=== PATIENT | male | born 1945 | race Caucasian/White ===

== ENCOUNTER 2017-10-30 16:06 | Inpatient (IN) | payer OTHER ==
[~2017-10-30] VITALS: Ht 175.3 cm; Wt 85.7 kg
[~2017-10-30 16:06] MED LIST: ALBUTEROL SULFAT2 MG PO; ALBUTEROL2.5 MG/31 INH; ALDACTAZIDE 251 EAC1 PO; ALDACTONE25 MG PO; AUGMENTIN 875875 MG PO; CARVEDILOL25 MG PO; COLACE100 MG PO; FENOFIBRATE160 MG PO; FLONASE 0.05%50 MCG NASAL; HYDROCHLOROTHIA25 M2 PO; IMDUR 30 MG TAB30 M1 PO; LEVAQUIN 500 M500 M4 PO; LEVEMIR SUBQ; LOVASTATIN 20 M20 MG PO; MIRALAX17 GM PO; NEBULIZER MISCELL; NITROGLYCERIN0.4 MG SUBLING; NOVOLIN N100 UNIT/3 SQ; NOVOLOG100 UNIT/1 SUBQ; OMEPRAZOLE40 MG PO; PERCOCET 7.5-31 EACH PO; PREDNISONE 10 M10 MG PO; PROZAC20 MG PO; SINEMET 25-1001 EAC1 PO; SINGULAIR 10 MG10 M1 PO
[2017-10-30 16:11] VITALS: BP 138/84
[2017-10-30 16:30] LABS: ABSOLUTE BASOPHILS 0.1 thou/uL (0.0-0.2); ABSOLUTE EOSINOPHILS 0.1 thou/uL (0.0-0.7); ABSOLUTE LYMPHOCYTES 1.1 thou/uL (0.8-5.3); ABSOLUTE MONOCYTES 0.5 thou/uL (0.0-1.2); ABSOLUTE NEUTROPHILS 5.5 thou/uL (1.6-8.1); BASOPHILS 0.8 %; HEMOGLOBIN 16.2 gm/dL (14.0-18.0); LYMPHOCYTES 14.7 %; MCV 81.9 fL (80.0-100.0); MONOCYTES 7.1 %; MPV 8.2 fl. (7.2-11.1); NUCLEATED RBCS 0 /100WBC; PLATELET COUNT* 265 thou/uL (150-400); POLYS 75.4 %; RBC 5.99 mil/uL (4.50-6.00); RDW-CV 14.3 % (10.5-14.5); WBC 7.3 thou/uL (4.0-11.0)
[2017-10-30 16:41] LABS: APTT 24.9 Seconds (25.0-31.3); INR 1.1; PROTIME 10.6 Seconds (9.20-11.50)
[2017-10-30 16:49] LABS: ANION GAP 12 mmol/L (7-16); BUN 16 mg/dL (7-18); CALCIUM 8.6 mg/dL (8.5-10.1); CHLORIDE 99 mmol/L (98-107); CO2 25 mmol/L (21-32); CREATININE 0.9 mg/dL (0.6-1.3); GLUCOSE 384 mg/dL (70-99); POTASSIUM 4.6 mmol/L (3.5-5.1); SODIUM 136 mmol/L (136-145)
[2017-10-30 16:57] LABS: ALBUMIN 3.4 g/dL (3.4-5.0); ALKALINE PHOSPHATASE 78 U/L (46-116); LIPASE 54 U/L (73-393); NT-PRO BRAIN NAT PEPTIDE 2720 pg/mL (<300); SGOT 14 U/L (15-37); SGPT 23 U/L (30-65); TOTAL BILIRUBIN 0.5 mg/dL (<0.1-1.0); TOTAL PROTEIN 6.8 g/dL (6.4-8.2); TROPONIN-I LEVEL <0.06 ng/mL (<0.06)
[2017-10-30 20:15] VITALS: BP 136/74
[2017-10-30 21:06] VITALS: BP 125/69
[2017-10-31] VITALS (16 sets, daily range): BP systolic 107–132; BP diastolic 56–75
[2017-10-31 08:24] LABS: HEMATOCRIT 43.1 % (42.0-52.0); HEMOGLOBIN 14.4 gm/dL (14.0-18.0); MCH 27.2 pg (26.0-34.0); MCHC 33.4 g/dL (28.0-37.0); MCV 81.3 fL (80.0-100.0); MPV 8.4 fl. (7.2-11.1); NUCLEATED RBCS 0 /100WBC; PLATELET COUNT* 248 thou/uL (150-400); RDW-CV 13.9 % (10.5-14.5)
[2017-10-31 08:40] LABS: ANION GAP 11 mmol/L (7-16); BUN 25 mg/dL (7-18); CHLORIDE 102 mmol/L (98-107); CO2 24 mmol/L (21-32); CREATININE 0.7 mg/dL (0.6-1.3); GLUCOSE 333 mg/dL (70-99); POTASSIUM 4.5 mmol/L (3.5-5.1); SODIUM 137 mmol/L (136-145); TROPONIN-I LEVEL <0.06 ng/mL (<0.06)
[2017-10-31 09:07] LABS: ABSOLUTE LYMPHOCYTES 0.5 thou/uL (0.8-5.3); ABSOLUTE MONOCYTES 0.2 thou/uL (0.0-1.2); ABSOLUTE NEUTROPHILS 4.4 thou/uL (1.6-8.1); ANISOCYTOSIS 1+; PLATELET ESTIMATE ADEQUATE; POIKILOCYTOSIS 1+
[2017-10-31 10:09] LABS: CHOLESTEROL 246 mg/dL (<200); HDL CHOLESTEROL 34 mg/dL (>40); LDL CHOLESTEROL 186 mg/dL (<100); SERUM ASSESSMENT Clear; TC:HDL 7.2 Ratio (Not establshd); TRIGLYCERIDE 130 mg/dL (<150); VLDL 26 mg/dL (<40)
--- NOTE | 2017-10-31 15:23 | EKG ---
[place] [address] ELECTROCARDIOGRAM REPORT Name: ALEXUS CONTE Room: [address]R.#: [id number] Admission: 10/30/17 Attend Phys: Donavan Baker MD Discharge: Date of : 45 Report #: [id number] THIS REPORT FOR: //name// [facility] ED Test Date: 2017-10-30 Test Time: 16:13:13 Pat Name: ALEXUS CONTE Department: Room: [facility] Gender: M Senior Interaction Designer: Tha YATES : 1945 Requested By: Federica Young Order Number: [id number] MD: Harvinder Vidal Measurements Intervals [place] Rate: 83 P: 56 CO: 199 QRS: -5 QRSD: 153 T: 183 QT: 388 QTc: 456 Interpretive Statements Sinus rhythm Left bundle branch block Compared to ECG 03/09/2017 21:41:27 Atrial abnormality no longer present Electronically Signed On 10-31-2017 15:23:36 INDUSTRIAL ORGANIZATIONAL PSYCHOLOGIST by Harvinder Vidal [email or web address] <ELECTRONICALLY SIGNED> By: Harvinder Vidal MD, [facility] 10/31/17 1523 1613 1613 Harvinder Vidal MD, [facility] /EPI
[2017-11-01] VITALS (13 sets, daily range): BP systolic 70–136; BP diastolic 39–89
[2017-11-01 05:13] LABS: HEMOGLOBIN 14.5 gm/dL (14.0-18.0); MCH 27.3 pg (26.0-34.0); MCHC 33.6 g/dL (28.0-37.0); MCV 81.2 fL (80.0-100.0); MPV 8.6 fl. (7.2-11.1); RBC 5.3 mil/uL (4.50-6.00); RDW-CV 14.1 % (10.5-14.5); WBC 11.2 thou/uL (4.0-11.0)
[2017-11-01 05:34] LABS: CALCIUM 8.3 mg/dL (8.5-10.1); CREATININE 0.8 mg/dL (0.6-1.3); POTASSIUM 4.5 mmol/L (3.5-5.1); TROPONIN-I LEVEL 0.11 ng/mL (<0.06)
--- NOTE | 2017-11-01 12:03 | CARD ---
[address] [address] CARDIAC CATH REPORT Name: ALEXUS CONTE Room: [address] Roxanne Moscoso#: [id number] Admission: 10/30/17 Attend Phys: Donavan Baker MD Discharge: Date of : 45 Report #: [id number] THIS REPORT FOR: //name// APPROVED REPORT Patient Details Patient Status: In-Patient Room #: The patient is a 72 year-old male Event Personnel Harvinder Vidal Lead Massage Therapist, Rashida Hylton Engine Generator Assembler, Ez Leon Monitor, Kym Hartman RTR Scrub, , Jack Aguilar (R) Monitor, Surendra Mathias Lead Massage Therapist Procedures Performed Left heart catheterization left ventriculography selective coronary atrophy, and percutaneous coronary intervention to the proximal right coronary artery Indication Unstable angina Risk Factors Hypercholesterolemia, Hypertension Previous Procedures/Diagnoses Previous PCI Admission/Lab Medications/Medications given during procedure Aspirin, Platelet Aff. Inhib., Angiomax bolus and infusion Procedure Narrative The patient was brought electively to the Cardiac Catheterization Laboratory and was prepped and draped in a sterile manner. The right wrist was infiltrated with 1% Lidocaine subcutaneous anesthesia. A Slender Glidesheath sheath was inserted into the . Coronary angiography was performed using coronary diagnostic catheters. The right coronary system was accessed and visualized with a DCR: [place] 4.0 5fr catheter. The left coronary system was accessed and visualized with a DCR: [place] 4.0 5fr catheter. The left ventricle was accessed and visualized with a PC: Angled Pig 5fr catheter. Left ventricular/Aortic Valve gradient assessed . Closure device was deployed with a Fr Vasc-Band Reg 24cm. The patient tolerated the procedure well and there were no complications [place] [address] CARDIAC CATH REPORT Name: ALEXUS CONTE Room: [address]#: [id number] Admission: 10/30/17 Attend Phys: Donavan Baker MD Discharge: Date of : 45 Report #: [id number] Intraoperative Conscious Sedation Sedation start time: 1410 Case end Time: 1527 Fentanyl 25 mcg Versed 2 mg Fluoro Time: 27.6 minutes Dose: DAP 500394 cGycm2 3160 mGy Contrast Type and Amount: Visipaque 285 ml Coronary Angiography The patient's coronary anatomy is co- dominant. Diagnostic Cath Left Main 0% narrowing LAD 40% proximal narrowing 80% mid LAD in-stent restenosis Circumflex 90% stenosis of a moderate sized subbranch of the first marginal branch of the codominant circumflex Right Coronary Prominent, codominant vessel with 90% proximal stenosis and 40% mid right coronary narrowing Left Ventriculography The left ventricle is normal in size with contractility. The left ventricular ejection fraction is estimated to be 50%. There is no mitral insufficiency. Hemodynamics The aortic pressure is 112/60 mmHg with a mean of 75 mmHg. The left ventricular pressure is 104/3 mmHg with a mean of mmHg. The left ventricular end diastolic pressure is 7 mmHg. There was no gradient across the aortic valve upon pullback. PCI Technique Lesion Anticoagulation was achieved with Angiomax. Patient was preloaded with Angiomax IV 12.75 mg per kg. Percutaneous coronary intervention was performed on the proximal right coronary artery. The lesion stenosis prior to intervention was 90% with KIYA 3 flow. A 6FR LAUNCHER AL.75 Guide Catheter was used to engage the ostium. A IG: ProwaterFlex 180CM Interventional Guidewire was used to cross the lesion. BALLOON DILATION A Balloon catheter Trek RX 2.25 X 15 was inserted and inflated up to 12.00atm for 13seconds. Additional Inflation: 16.00atm [place] 13[place]. [place] [address] CARDIAC CATH REPORT Name: ALEXUS CONTE Room: [address] Blanka#: [id number] Admission: 10/30/17 Attend Phys: Donavan Baker MD Discharge: Date of : 45 Report #: [id number] STENT DEPLOYMENT A stent Xience Alpine RX 2.5X18 was inserted and inflated up to 12.00atm for 13seconds. Additional Inflation: 16.00atm for 15seconds. Additional Inflation: 17.00atm for 14seconds. POST STENT DEPLOYMENT BALLOON DILATION A Balloon catheter NC Euphora 2.75x12 was inserted and inflated up to 15.00atm for 13seconds. Additional Inflation: 17.00atm for 8seconds. Additional Inflation: 16.00atm for 10seconds. Final angiography reveals 0 % stenosis with KIYA 3 flow. Conclusion #1 significant coronary artery disease characterized by the following: A 40% proximal and 80% mid LAD in-stent restenosis, B 90% stenosis of a moderate sized subbranch of the first marginal branch of the codominant circumflex, C codominant right coronary with 90% proximal 40% mid vessel narrowing #2 mild impairment in global left ventricular systolic function, estimated ejection fraction being 50%, #3 normal left-sided hemodynamics study, #4 successful percutaneous coronary intervention with deployment of drug-eluting stent at site of 90% proximal right coronary stenosis with 0% residual narrowing following stent deployment and KIYA-3 flow to the distal vessel. Recommendations Aggressive Medical Therapy Medications Administered Aspirin (any) Ticagrelor <ELECTRONICALLY SIGNED> By: Surendra Mathias MD, [facility] 11/01/17 1202 1202 1202Surendra Mathias MD, FACC /INF
--- NOTE | 2017-11-01 14:36 | EKG ---
[place] [address] ELECTROCARDIOGRAM REPORT Name: ALEXUS CONTE Room: [address] M.R.#: [id number] Admission: 10/30/17 Attend Phys: Donavan Baker MD Discharge: Date of : 45 Report #: [id number] THIS REPORT FOR: //name// [facility] Test Date: 2017-10-31 Test Time: 16:09:57 Pat Name: ALEXUS CONTE Department: Room: [address] Gender: M Slip Caster: 27 : 1945 Requested By: Surendra Mathias Order Number: [id number] Reading MD: Harvinder Vidal Measurements Intervals [place] Rate: 82 P: 0 ME: 194 QRS: 82 QRSD: 129 T: -83 QT: 418 QTc: 489 Interpretive Statements Sinus rhythm Nonspecific intraventricular conduction delay Probable anteroseptal infarct, recent Baseline wander in lead(s) V2 Compared to ECG 10/30/2017 16:13:13 Intraventricular conduction delay now present Myocardial infarct finding now present Left bundle-branch block no longer present Electronically Signed On 11-01-2017 14:36:48 AFTERSCHOOL by Harvinder Vidal [email or web address] <ELECTRONICALLY SIGNED> By: Harvinder Vidal MD, FACC 11/01/17 1436 1609 1609 Harvinder Vidal MD, FACC /EPI
--- NOTE | 2017-11-01 14:39 | EKG ---
[place] [address] ELECTROCARDIOGRAM REPORT Name: ALEXUS CONTE Room: [address]R.#: [id number] Admission: 10/30/17 Attend Phys: Donavan Baker MD Discharge: Date of : 45 Report #: [id number] THIS REPORT FOR: //name// [facility] Test Date: 2017-11-01 Test Time: 08:09:44 Pat Name: ALEXUS CONTE Department: Room: [address] Gender: M Stunt Performer: 27 : 1945 Requested By: Surendra Mathias Order Number: [id number] Reading MD: Harvinder Vidal Measurements Intervals [place] Rate: 93 P: 62 SD: 196 QRS: 11 QRSD: 161 T: 227 QT: 403 QTc: 502 Interpretive Statements Sinus rhythm Left bundle branch block Compared to ECG 10/30/2017 16:13:13 No significant changes Electronically Signed On 11-01-2017 14:39:13 TRANSITIONAL NURSE by Harvinder Vidal [email or web address] <ELECTRONICALLY SIGNED> By: Harvinder Vidal MD, [facility] 11/01/17 1439 8 8 Harvinder Vidal MD, [facility] /EPI
[2017-11-02] VITALS: BP 134/82
[2017-11-02 04:00] VITALS: BP 142/91
[2017-11-02 04:55] LABS: CALCIUM 8.4 mg/dL (8.5-10.1); CREATININE 0.7 mg/dL (0.6-1.3)
[2017-11-02 05:00] LABS: ABSOLUTE EOSINOPHILS 0.1 thou/uL (0.0-0.7); ABSOLUTE LYMPHOCYTES 1.1 thou/uL (0.8-5.3); ABSOLUTE MONOCYTES 0.5 thou/uL (0.0-1.2); ABSOLUTE NEUTROPHILS 4.8 thou/uL (1.6-8.1); BASOPHILS 0.4 %; EOSINOPHILS 1.1 %; HEMATOCRIT 42.1 % (42.0-52.0); HEMOGLOBIN 14.1 gm/dL (14.0-18.0); LYMPHOCYTES 17.1 %; MCH 27.1 pg (26.0-34.0); MCHC 33.6 g/dL (28.0-37.0); MCV 80.8 fL (80.0-100.0); MONOCYTES 7.5 %; MPV 8.9 fl. (7.2-11.1); NUCLEATED RBCS 0 /100WBC; PLATELET COUNT* 233 thou/uL (150-400); POLYS 73.9 %; RBC 5.21 mil/uL (4.50-6.00); RDW-CV 14.3 % (10.5-14.5); WBC 6.6 thou/uL (4.0-11.0)
[2017-11-02 08:43] VITALS: BP 139/84
[2017-11-02 12:49] VITALS: BP 147/87
[2017-11-02 12:57] VITALS: BP 147/87
[2017-11-02] MEDS ORDERED: BRILINTA90 MG PO (13:06)
[2017-11-02] MEDS ORDERED: CRESTOR20 MG PO (13:09)
--- NOTE | 2017-11-02 13:11 | EKG ---
[place] [address] ELECTROCARDIOGRAM REPORT Name: ALEXUS CONTE Room: [address] M.R.#: [id number] Admission: 10/30/17 Attend Phys: Donavan Baker MD Discharge: Date of : 45 Report #: [id number] THIS REPORT FOR: //name// [facility] Test Date: 2017-11-01 Test Time: 13:50:37 Pat Name: ALEXUS CONTE Department: Room: [address] Gender: M Claims Vice President: [facility] : 1945 Requested By: Donavan Baker Order Number: [id number] Reading MD: Harvinder Vidal Measurements Intervals [place] Rate: 76 P: 45 [place]: 189 QRS: -32 QRSD: 133 T: 146 QT: 440 QTc: 495 Interpretive Statements Sinus rhythm Probable left atrial enlargement Left bundle branch block Baseline wander in lead(s) II,III,aVR,aVF Compared to ECG 11/01/2017 08:09:44 No significant changes Electronically Signed On 11-02-2017 13:11:31 ONLINE SERVICES MANAGER by Harvinder Vidal [email or web address] <ELECTRONICALLY SIGNED> By: Harvinder Vidal MD, FAC 11/02/17 1311 1350 1350 Harvinder Vidal MD, [facility] /EPI
--- NOTE | 2017-11-02 13:12 | EKG ---
[place] [address] ELECTROCARDIOGRAM REPORT Name: ALEXUS CONTE Room: [address] M.R.#: [id number] Admission: 10/30/17 Attend Phys: Donavan Baker MD Discharge: Date of : 45 Report #: [id number] THIS REPORT FOR: //name// [facility] Test Date: 2017-11-01 Test Time: 21:12:34 Pat Name: ALEXUS CONTE Department: Room: [address] Gender: M Yarder Puncher: : 1945 Requested By: Harvinder Vidal Order Number: [id number] Reading MD: Harvinder Vidal Measurements Intervals [place] Rate: 105 P: 216 [place]: 103 QRS: 21 QRSD: 153 T: 231 QT: 419 QTc: 554 Interpretive Statements Sinus or ectopic atrial tachycardia Left bundle branch block Compared to ECG 11/01/2017 08:09:44 Sinus rhythm no longer present Electronically Signed On 11-02-2017 13:12:02 DIGITAL PRINT OPERATOR by Harvinder Vidal [email or web address] <ELECTRONICALLY SIGNED> By: Harvinder Vidal MD, [facility] 11/02/171311 11 11 Harvinder Vidal MD, [facility] /EPI
--- NOTE | 2017-11-04 09:44 | CON ---
[address] [address] CONSULTATION Name: INÉSALEXUS Justyna Room: [address] Roxanne Moscoso#: [id number] Admission: 10/30/17 Attend Phys: Donavan Baker MD Discharge: 11/02/17 Date of : 45 Report #: [id number] THIS REPORT FOR: //name// CC: Donavan Torre CHIEF COMPLAINT: Chest pain. HISTORY OF PRESENT ILLNESS: The patient is a 72-year-old man with a known history of prior coronary artery disease and acute TX remotely at [facility] in 1999 with PCI, presented with resting chest discomfort, was improved with nitroglycerin. This all occurred last night. He has been noticing significant dyspnea with exertion, especially when he enters the cold weather. Some symptoms are similar to his prior PCI, but he was minimally symptomatic at the time of his prior TX. He had had actually presented with elective outpatient dermatologic surgery and then had developed unstable angina. He has not had any cardiovascular followup since then. He presents with a left bundle branch. His troponin I this morning is 0.06. He denies fevers, chills. He denies neuro symptoms of slurred speech, numbness or weakness. PAST MEDICAL HISTORY: 1. Coronary artery disease with PCI in the acute setting in 1999. 2. Left bundle-branch block, chronology not known. 3. Hyperlipidemia. 4. Diabetes mellitus. 5. Former smoker, quit in 1991. SOCIAL HISTORY: No active smoking. PAST SURGICAL HISTORY: No recent surgeries. ALLERGIES: He has ALLERGIES TO MORPHINE, HYDROCODONE, and TYLENOL, but denies aspirin or contrast allergies. FAMILY HISTORY: Noncontributory. REVIEW OF SYSTEMS: GASTROINTESTINAL: No nausea or vomiting. No hematemesis or melena. GENITOURINARY: No dysuria or hematuria. SKIN: No rashes. CARDIOVASCULAR: Positive chest pain, positive dyspnea with exertion, no orthopnea. Positive edema, which is transient. NEUROLOGIC: Denies headaches, blurry vision. He does have a remote diagnosis [place] [address] CONSULTATION Name: INÉSALEXUS Room: [address]#: [id number] Admission: 10/30/17 Attend Phys: Donavan Baker MD Discharge: 11/02/17 Date of : 45 Report #: [id number] ENDOCRINE: He does have hyperlipidemia. HEMATOLOGIC: No anemia or bleeding disorders. ALLERGIES: As above. PSYCHIATRIC: No depression or anxiety. SKIN: No rashes. GENERAL: No fevers or chills. HOME MEDICATIONS: Levodopa and carbidopa, fenofibrate 160 mg daily, fluoxetine 20 mg daily, insulin sliding scale, Imdur 30 mg daily, lovastatin 20 mg at bedtime, nitroglycerin 0.4 mg p.r.n., omeprazole. PHYSICAL EXAMINATION: VITAL SIGNS: Blood pressure is 107/60 with a pulse of 76, respirations 15. GENERAL: This is a pleasant elderly male who is alert. He is a poor historian, but in no apparent distress. HEENT: Eyes, EOMs intact. No facial asymmetry. NECK: Supple. No jugular venous distention. Carotid upstrokes are normal. CARDIOVASCULAR: Regular, I cannot hear a murmur. LUNGS: Clear to auscultation. ABDOMEN: Soft, nontender. EXTREMITIES: No peripheral edema. SKIN: Warm and dry. PSYCHIATRIC: The patient has appropriate mood and affect. LABORATORY DATA: ECG demonstrates sinus rhythm, left bundle-branch block. Hemoglobin is 14.4; white blood cell count is 5; platelet count is 248,000. Sodium is 137, potassium is 4.5, chloride 102, BUN is 25, creatinine is 0.7, glucose is 333, troponin I is 0.06. CRP is less than 2. Chest x-ray reveals no acute chest process. IMPRESSION: 1. Unstable angina. His rest chest discomfort associated with significant dyspnea with exertion are likely anginal in etiology, especially as he has numerous cardiovascular risk factors including diabetes, hyperlipidemia, known history of coronary artery disease. He presents with a left bundle-branch block of which we do not know exactly when this was previously present, if not at all. At this point in time, I have recommended a direct evaluation with cardiac catheterization based on some unstable features of his presentation. The patient elects to proceed. 2. Coronary artery disease as noted above. We will continue with aspirin, nitrate therapy and evaluation [place] [address] CONSULTATION Name: INÉSALEXUS Room: [address] Roxanne Moscoso#: [id number] Admission: 10/30/17 Attend Phys: Donavan Baker MD Discharge: 11/02/17 Date of : 45 Report #: [id number] 3. Diabetes mellitus. Per hospital colleagues. 4. Hyperlipidemia. I would continue with the statin and fenofibrate. <ELECTRONICALLY SIGNED> By: Harvinder Vidal MD, FACC 11/04/17 0944 0953 1105Harvinder Vidal MD, FACC /nt
--- NOTE | 2017-11-04 10:12 | D ---
[facility] [address] [place] [address] DISCHARGE SUMMARY Name: INÉSALEXUS Jansen Room: [address] Roxanne Moscoso#: [id number] Admission: 10/30/17 Attend Phys: Donavan Baker MD Discharge: 11/02/17 Date of : 45 Report #: [id number] THIS REPORT FOR: //name// CC: Donavan Torre DATE OF SERVICE: 11/01/2017 FINAL DIAGNOSES: 1. Unstable angina. 2. Coronary artery disease status post percutaneous coronary intervention to picayune proximal right coronary artery 90% stenosis. 3. Left bundle-branch block. 4. Hyperlipidemia. 5. Diabetes mellitus. HOSPITAL COURSE: The patient had been having chest discomfort as an outpatient and underwent a diagnostic cardiac catheterization which revealed a severe proximal 90% RCA stenosis, which was successfully treated with drug-eluting stent. He also had a severe stenosis in a medium to large size obtuse marginal branch vessel and an instent restenosis in the 70% range to a proximal LAD stent, which will be addressed at a later date. Due to the dye load from his initial PCI, these were not able to be treated at the same time. He has preserved LV function. DISCHARGE MEDICATIONS: Will include Crestor 20 mg daily, Brilinta 1 p.o. b.i.d. His diabetic medications were unchanged. We did switch him from generic lovastatin to generic Crestor because his LDL was greater than 160. FOLLOWUP: He will follow up with Aleyda Palafox on 11/07/2017. <ELECTRONICALLY SIGNED> By: Harvinder Vidal MD, FACC 11/04/17 1012 1225 2305Harvinder Vidal MD, FACC /nt
== END 2017-11-02 13:55 | disposition home or self-care (01) | DRG 246 ==
LOC: M.ERS 16:06 → M.TBA-ER 18:03 → M.2W 18:03
PROVIDERS: Internal Medicine; Internal Medicine Cardiovascular Disease; Personal Emergency Response Attendant; ADMIT Internal Medicine
PROC: B2151ZZ Fluoroscopy of Left Heart using Low Osmolar Contrast (ICD-10-PCS; principal; 2017-11-01)
PROC: B2111ZZ Fluoroscopy of Multiple Coronary Arteries using Low Osmolar Contrast (ICD-10-PCS; principal; 2017-11-01)
PROC: 027034Z Dilation of Coronary Artery, One Artery with Drug-eluting Intraluminal Device, Percutaneous Approach (ICD-10-PCS; principal; 2017-11-01)
PROC: 4A023N7 Measurement of Cardiac Sampling and Pressure, Left Heart, Percutaneous Approach (ICD-10-PCS; principal; 2017-11-01)
DX: I25.110 Atherosclerotic heart disease of native coronary artery with unstable angina pectoris (principal); I50.31 Acute diastolic (congestive) heart failure; T82.855A Stenosis of coronary artery stent, initial encounter; E11.65 Type 2 diabetes mellitus with hyperglycemia; E78.5 Hyperlipidemia, unspecified; G20 Parkinson's disease; I44.7 Left bundle-branch block, unspecified; Y83.8 Other surgical procedures as the cause of abnormal reaction of the patient, or of later complication, without mention of misadventure at the time of the procedure; Z85.820 Personal history of malignant melanoma of skin; I25.2 Old myocardial infarction; Z87.891 Personal history of nicotine dependence; Z95.5 Presence of coronary angioplasty implant and graft; Z90.49 Acquired absence of other specified parts of digestive tract; Z79.51 Long term (current) use of inhaled steroids; Z79.82 Long term (current) use of aspirin; Z79.4 Long term (current) use of insulin; Z79.899 Other long term (current) drug therapy; Z88.5 Allergy status to narcotic agent; Z88.8 Allergy status to other drugs, medicaments and biological substances; Y92.89 Other specified places as the place of occurrence of the external cause

== ENCOUNTER 2017-11-05 09:45 | Inpatient (IN) | payer OTHER ==
[~2017-11-05] VITALS: Ht 175.3 cm; Wt 88.5 kg
[~2017-11-05 09:45] MED LIST changes: +BRILINTA90 MG PO; +CRESTOR20 MG PO
[2017-11-05 09:48] VITALS: BP 173/109
[2017-11-05 10:01] LABS: ABSOLUTE BASOPHILS 0.1 thou/uL (0.0-0.2); ABSOLUTE EOSINOPHILS 0.3 thou/uL (0.0-0.7); ABSOLUTE LYMPHOCYTES 2.9 thou/uL (0.8-5.3); ABSOLUTE MONOCYTES 0.7 thou/uL (0.0-1.2); ABSOLUTE NEUTROPHILS 5.9 thou/uL (1.6-8.1); BASOPHILS 0.7 %; EOSINOPHILS 2.8 %; HEMATOCRIT 49.3 % (42.0-52.0); HEMOGLOBIN 16.1 gm/dL (14.0-18.0); MCH 27.1 pg (26.0-34.0); MCHC 32.8 g/dL (28.0-37.0); MCV 82.8 fL (80.0-100.0); MONOCYTES 7.5 %; MPV 8.7 fl. (7.2-11.1); NUCLEATED RBCS 0 /100WBC; PLATELET COUNT* 350 thou/uL (150-400); RBC 5.96 mil/uL (4.50-6.00); RDW-CV 14.4 % (10.5-14.5); WBC 9.8 thou/uL (4.0-11.0)
[2017-11-05 10:10] LABS: CALCIUM 9.1 mg/dL (8.5-10.1); CREATININE 0.8 mg/dL (0.6-1.3); POTASSIUM 3.9 mmol/L (3.5-5.1)
[2017-11-05 10:16] LABS: APTT 24.2 Seconds (25.0-31.3); PROTIME 10.1 Seconds (9.20-11.50)
[2017-11-05 10:33] LABS: ALBUMIN 3.6 g/dL (3.4-5.0); CK-MB MASS 0.7 ng/mL (<0.5-3.6); MAGNESIUM 1.8 mg/dL (1.8-2.4); TOTAL BILIRUBIN 0.6 mg/dL (<0.1-1.0); TOTAL PROTEIN 7.1 g/dL (6.4-8.2)
[2017-11-05 11:29] LABS: TROPONIN-I LEVEL 0.14 ng/mL (<0.06)
--- NOTE | 2017-11-05 16:22 | EKG ---
[place] [address] ELECTROCARDIOGRAM REPORT Name: ALEXUS CONTE Room: [place] [address] ADM IN [facility].#: [id number] Admission: 11/05/17 Attend Phys: Donavan Baker MD Discharge: Date of : 45 Report #: [id number] THIS REPORT FOR: //name// [facility] ED Test Date: 2017-11-05 Test Time: 09:48:04 Pat Name: ALEXUS CONTE Department: Room: [facility] Gender: M Can Top Setter: Tha WILLAMS : 1945 Requested By: Emiliano Tavarez Order Number: [id number] MD: Giorgio Lundberg Measurements Intervals [place] Rate: 108 P: 0 [place]: 161 QRS: 19 QRSD: 155 T: 217 QT: 366 QTc: 491 Interpretive Statements Sinus tachycardia Left bundle branch block Baseline wander in lead(s) V1,V2 Compared to ECG 11/01/2017 21:12:34 No significant changes Electronically Signed On 11-05-2017 16:22:13 GUARD MUSEUM by Giorgio Lundberg [email or web address] <ELECTRONICALLY SIGNED> By: Giorgio Lundberg MD, [facility] 11/05/17 1622 0948 0948 Giorgio Lundberg MD, [facility] /EPI
[2017-11-05 17:35] VITALS: BP 154/81
[2017-11-05 17:49] VITALS: BP 115/67
[2017-11-05 18:55] VITALS: BP 131/74
[2017-11-05 19:06] VITALS: BP 115/67
[2017-11-05 20:00] VITALS: BP 140/81
[2017-11-06] VITALS (18 sets, daily range): BP systolic 62–158; BP diastolic 30–99
[2017-11-06 05:43] LABS: HEMATOCRIT 43.2 % (42.0-52.0); HEMOGLOBIN 14.2 gm/dL (14.0-18.0); MCH 26.6 pg (26.0-34.0); MCHC 32.8 g/dL (28.0-37.0); MCV 81.3 fL (80.0-100.0); MPV 8.9 fl. (7.2-11.1); NUCLEATED RBCS 0 /100WBC; PLATELET COUNT* 325 thou/uL (150-400); RBC 5.32 mil/uL (4.50-6.00); RDW-CV 14.3 % (10.5-14.5); WBC 12.7 thou/uL (4.0-11.0)
[2017-11-06 06:10] LABS: CALCIUM 8.4 mg/dL (8.5-10.1); CREATININE 0.7 mg/dL (0.6-1.3); POTASSIUM 4.3 mmol/L (3.5-5.1)
[2017-11-06 06:17] LABS: ABSOLUTE LYMPHOCYTES 0.6 thou/uL (0.8-5.3); ABSOLUTE MONOCYTES 0.8 thou/uL (0.0-1.2); ABSOLUTE NEUTROPHILS 11.3 thou/uL (1.6-8.1)
[2017-11-06 06:18] LABS: ANISOCYTOSIS 1+; PLATELET ESTIMATE ADEQUATE; POIKILOCYTOSIS 1+; POLYCHROMASIA Occasional
--- NOTE | 2017-11-06 17:29 | EKG ---
[place] [address] ELECTROCARDIOGRAM REPORT Name: ALEXUS CONTE Room: [address] ADM IN .R.#: [id number] Admission: 11/05/17 Attend Phys: Donavan Baker MD Discharge: Date of : 45 Report #: [id number] THIS REPORT FOR: //name// [facility] Test Date: 2017-11-06 Test Time: 00:56:58 Pat Name: ALEXUS CONTE Department: Room: [facility] Gender: M Manager Of Planning: : 1945 Requested By: Juan M Guerrero Order Number: [id number] MD: Gomez Nguyen Measurements Intervals [place] Rate: 84 P: 48 [place]: 161 QRS: -34 QRSD: 128 T: 136 QT: 398 QTc: 471 Interpretive Statements Sinus rhythm Left bundle branch block Baseline wander in lead(s) V2 Compared to ECG 11/05/2017 09:48:04 Sinus tachycardia no longer present Electronically Signed On 11-06-2017 17:29:35 ARMAMENT AIRCRAFT MECHANIC by Gomez Nguyen [email or web address] <ELECTRONICALLY SIGNED> By: Gomez Nguyen MD, FAC 11/06/17 1729 0056 0056 Gomez Nguyen MD, [facility] /EPI
[2017-11-06 18:27] LABS: HCO3 6.6 mmol/L (22.0-26.0); PCO2 18.3 mmHg (35.0-45.0); PO2 328.7 mmHg (75.0-100.0); pH 7.176 (7.340-7.450)
[2017-11-06 18:28] LABS: BE -19.5 mmol/L (-2 to +3)
--- NOTE | 2017-11-06 19:34 | CON ---
[address] [address] CONSULTATION Name: ALEXUS CONTE Room: [address] IN ..#: [id number] Admission: 11/05/17 Attend Phys: Donavan Baker MD Discharge: 11/06/17 Date of : 45 Report #: [id number] THIS REPORT FOR: //name// CC: Donavan Torre DO DATE OF SERVICE: 11/05/2017 CARDIOLOGY CONSULTATION HISTORY OF PRESENT ILLNESS: The patient is a 72-year-old white male who I was asked to see in the hospital after he complained of chest pain. The patient has an extensive past medical history. Unfortunately, not all of his old records are available. The patient apparently had previous coronary artery stenting of his LAD at [facility] years ago. He was told at that time, he had had a myocardial infarction. He had a previous nuclear stress test here at [place] in 2014 that showed no evidence of ischemia with a fixed basal inferior defect, ejection fraction 48%. The patient had an echocardiogram in 2016 here at [place] that showed an ejection fraction 50% with left atrial enlargement. The patient was just admitted here to [place] a week ago. He complained of lightheadedness, not feeling well, dizziness. He was noted to have an abnormal ECG. He was seen by Dr. Vidal. He did note some shortness of breath. His troponin 0.06. He was felt to be having anginal equivalent with left bundle branch block. Dr. Mathias performed cardiac catheterization on October 31 last week. It was performed from the right radial artery. The LAD had a stent. The marginal branch gave off a small side branch had an ostial 90% stenosis. The right coronary had proximal 90% stenosis, ejection fraction of 50%. Dr. Mathias then placed a single drug-eluting stent in the proximal right coronary artery. He tolerated this well. He was placed on discharged on Brilinta and switched from lovastatin to Crestor. He initially did well after his discharge; however, he notes that last night he felt a pain in his chest, went into his jaw, left arm. He felt short of breath, diaphoretic, he took a nitroglycerin it did not seem to help. The pain occurred off and on throughout the night. He was coughing. He had had no bleeding. He finally came to the hospital today and was admitted. He is not very active because of his Parkinson's disease. Denies exertional dyspnea, notes an irregular heartbeat occasionally, but no syncope or edema. PAST MEDICAL AND SURGICAL HISTORY: Otherwise significant for back surgery, appendectomy, hiatal hernia surgery, cholecystectomy. He has Parkinson's disease, diabetes, hyperlipidemia. CURRENT MEDICATIONS: Consists of omeprazole, insulin, Brilinta, Crestor, fenofibrate, nebulizer, [place] [address] CONSULTATION Name: ALEXUS CONTE Room: [address]#: [id number] Admission: 11/05/17 Attend Phys: Donavan Baker MD Discharge: 11/06/17 Date of : 45 Report #: [id number] ALLERGIES: He has intolerance to MORPHINE. FAMILY HISTORY: Negative for heart disease. SOCIAL HISTORY: He is . He and his live in [place]. 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 Quit smoking years ago. No alcohol abuse. REVIEW OF SYSTEMS: He has no history of stroke. He had asthma as a child. He had a peptic ulcer in the past. No liver disease, no kidney disease. He has skin cancer removed in the past. He has Parkinson's disease. PHYSICAL EXAMINATION: GENERAL: Revealed an elderly male lying on a stretcher. He appeared in no acute distress. VITAL SIGNS: He had a blood pressure 130/80, pulse is 80. He is afebrile. HEENT: He is anicteric. Conjunctivae pink. Mucous membranes moist. NECK: Veins nondistended. No carotid bruits. Neck was supple. CHEST: Clear to auscultation. CARDIOVASCULAR: Regular rate and rhythm. ABDOMEN: Soft, nontender. EXTREMITIES: Had no edema. Dorsalis pedis pulse 2+ bilaterally. SKIN: Warm, dry. NEUROLOGIC: Nonfocal. LABORATORY DATA: His ECG on admission showed sinus rhythm with left bundle branch block. His workup in the emergency room, he had a chest x-ray that showed normal heart size, clear lung leos. His lab work: Sodium 135, creatinine 0.8, glucose 408. Liver function studies are normal. Troponin was elevated last week at 0.34 to now 0.14. Recent cholesterol 246, triglyceride 130, HDL 34, LDL 186. White blood cell count 9.8, hemoglobin 16.1. IMPRESSION AND RECOMMENDATIONS: 1. Unstable angina. Recommend stenting of the circumflex. 2. Parkinson's disease. 3. Diabetes. 4. Hyperlipidemia. <ELECTRONICALLY SIGNED> By: Giorgio Lundberg MD, [facility] 11/06/17 1934 1505 2254Dabebe Lundberg MD, FACC /nt
--- NOTE | 2017-11-07 12:27 | EKG ---
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: jrdevendra : 1945 Requested By: Giorgio Lundberg Order Number: [id number] Stefan MD: Giorgio Lundberg Measurements Intervals [place] Rate: 39 P: WI: QRS: -60 QRSD: 142 T: 63 QT: 532 QTc: 429 Interpretive Statements junctional rhythm IVCD, consider atypical RBBB Inferior infarct, acute (RCA) Probable RV involvement, suggest recording right precordial leads Baseline wander in lead(s) II,III,aVF,V2,V3,V4 Compared to ECG 11/06/2017 00:56:58 Sinus rhythm no longer present Left bundle-branch block no longer present Electronically Signed On 11-07-2017 12:27:40 REHAB/PRE VOCATIONAL COUNSELOR by Giorgio Lundberg [email or web address] <ELECTRONICALLY SIGNED> By: Giorgio Lundberg MD, [facility] 11/07/17 1227 1713 1713 Giorgio Lundberg MD, [facility] /EPI
--- NOTE | 2017-11-07 14:11 | CARD ---
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 Inhib. Procedure Narrative The patient was brought electively to the Cardiac Catheterization Laboratory and was prepped and draped in a sterile manner. The right wrist was infiltrated with 1% Lidocaine subcutaneous anesthesia. A 6 fr sheath was inserted into the right radial artery. Coronary angiography was performed using coronary diagnostic catheters. The right coronary system was accessed and visualized with a [id number] 6fr catheter. Left ventricular/Aortic Valve gradient assessed via catheter pullback. The patient tolerated the procedure well and there were no complications associated with the procedure. There was no hematoma. Arteriogram was not performed of the left coronary artery that had been visualized at the time of cardiac cath performed on 2017 Intraoperative Conscious Sedation [address] [address] CARDIAC CATH REPORT Name: ALEXUS CONTE Room: [address]#: [id number] Admission: 11/05/17 Attend Phys: Donavan Baker MD Discharge: 11/06/17 Date of : 45 Report #: [id number] Sedation start time: 12:15 Case end Time: 13:07 Fentanyl 25 mcg Fluoro Time: 9.0 minutes Dose: DAP 173721 cGycm2 1088.23 mGy Contrast Type and Amount: Omnipaque 150 ml Coronary Angiography The patient's coronary anatomy is co- dominant. Diagnostic Cath Right Coronary A stent was noted in the proximal RCA that was completely occluded with thrombus. Left Ventriculography Left Ventriculography was not performed. Hemodynamics The aortic pressure is 128/79 mmHg with a mean of mmHg. The left ventricular pressure is 126/2 mmHg with a mean of mmHg. The left ventricular end diastolic pressure is 16 mmHg. There was no gradient across the aortic valve upon pullback. Pullback from the left ventricle to the aorta revealed no gradient across the aortic valve. PCI Technique Lesion Anticoagulation was achieved with lovenox 30 mg IV. iv aggrastat was used Patient was preloaded with Brillinta. Percutaneous coronary intervention was performed on the proximal right coronary artery. The lesion stenosis prior to intervention was 100% with KIYA 0 flow. A RCB 6fr Guide Catheter was used to engage the rca ostium. A IG: BMW 190cm Interventional Guidewire was used to cross the lesion. BALLOON DILATION A Balloon catheter 2.5 x 8 mm was inserted and inflated up to 16atm for 15seconds. Repeat angiography revealed the following post-dilatation results: 70% stenosis with thrombus noted. Additional Inflation: 18atm for 15seconds. Additional Inflation: 18atm for 15seconds. Arteriogram revealed diffusely narrowed RCA that improved with IC nitro. 80% discrete stenosis was noted at the acute margin of the vessel STENT DEPLOYMENT A drug-eluting stent Resolute RX 2.5X18 was inserted and inflated up to 11atm for 10seconds. Repeat [place] [address] CARDIAC CATH REPORT Name: ALEXUS CONTE Room: [address]#: [id number] Admission: 11/05/17 Attend Phys: Donavan Baker MD Discharge: 11/06/17 Date of : 45 Report #: [id number] post-stent deployment results: 0% stenosis. Final angiography reveals 0 % stenosis with KIYA 3 flow. PCI Technique Lesion 2 Percutaneous Coronary Intervention was performed on the proximal right coronary artery. Patient was preloaded with Brillinta. Percutaneous coronary intervention was performed on the proximal right coronary artery. The lesion stenosis prior to intervention was 100% with KIYA 0 flow. A RCB 6fr Guide Catheter was used to engage the rca ostium. A IG: BMW 190cm Interventional Guidewire was used to cross the lesion. Balloon Dilation A Balloon catheter 2.5 x 8 mm was inserted and inflated up to 18atm for 15seconds. Repeat angiography revealed the following post-dilatation results: 70% stenosis with clot. Stent Deployment A drug-eluting stent Resolute RX 3X15 was inserted and inflated up to 16atm for 10seconds. Repeat angiography revealed the following post-stent deployment results: 0% stenosis. Final angiography reveals 0 % stenosis with KIYA 3 flow. Conclusion 1. Subacute thrombosis of a stent in the proximal RCA 2. Stenting of a 80% stenosis at the acute margin of the RCA 3. Successful repeat stenting of the proximal RCA 4. The patient had not filled his prescription for Brilinta which was given to him following placement of the stent in the rca 5 days prior to his presentation Recommendations Aggressive Medical Therapy <ELECTRONICALLY SIGNED> By: Giorgio Lundberg MD, [facility] 11/07/17 1410 141 1410Dapaul Lundberg MD, FAC /INF
--- NOTE | 2017-11-07 16:12 | D ---
[address] [address] DISCHARGE SUMMARY Name: ALEXUS CONTE Room: [address] IN .R.#: [id number] Admission: 11/05/17 Attend Phys: Donavan Baker MD Discharge: 11/06/17 Date of : 45 Report #: [id number] THIS REPORT FOR: //name// CC: Donavan Torre DO DATE OF SERVICE: 11/06/2017 NOTE DATE OF : 11/06/2017 DIAGNOSES: 1. Acute non-ST segment elevation myocardial infarction. 2. Coronary artery disease. 3. Parkinson's disease. 4. Diabetes. CONSULTANTS: None. PROCEDURES: 1. Left heart catheterization with placement of 2 drug-eluting stents in the right coronary artery via the radial approach. 2. Placement of a temporary pacing lead through the right femoral vein. HISTORY OF PRESENT ILLNESS: The patient is a 72-year-old white male who came to the Emergency Room complaining of chest pain. The patient had a previous stent placed in his LAD at [facility] years ago. He apparently continues to see his harness and bag inspector approximately once a year. He stays fairly active. The patient presented to [facility] a week ago with intermittent chest pain. He noticed shortness of breath. He was taken to the slab tripper by Dr. Mathias. The stent in the LAD had no significant restenosis. There was a marginal branch gave off a small side branch and had an ostial of 90% stenosis. The right coronary artery had a proximal 90% stenosis. Ejection fraction was at the lower limits normal. Dr. Mathias then placed a single drug-eluting stent in the proximal right coronary artery. He tolerated this well and was discharged with a prescription for Brilinta and switched from lovastatin to Crestor. According to the patient's , he initially did well after his discharge. Apparently, they, however, went to a pharmacy when they found out how costly the Brilinta was they never filled the prescription. However, the past 2 days, the patient has been having intermittent chest pain. He felt short of breath, diaphoretic. The pain occurred off and on. He finally came to the hospital and was admitted. He denied any syncope. PAST MEDICAL AND SURGICAL HISTORY: Significant for back surgery, appendectomy, [place] [address] DISCHARGE SUMMARY Name: INÉSALEXUS Jansen Room: [address]#: [id number] Admission: 11/05/17 Attend Phys: Donavan Baker MD Discharge: 11/06/17 Date of : 45 Report #: [id number] hernia surgery, cholecystectomy. He has Parkinson's disease, diabetes, hyperlipidemia. MEDICATIONS: On admission include omeprazole, insulin, Crestor, fenofibrate, Flonase, an aspirin a day; however, he is not taking Brilinta. ALLERGIES: He had intolerance to MORPHINE. PHYSICAL EXAMINATION: VITAL SIGNS: His blood pressure 130/80, pulse is 80. CHEST: Clear to auscultation. CARDIAC: Regular rate and rhythm. ABDOMEN: Soft, nontender. EXTREMITIES: Had no edema. DIAGNOSTIC DATA: ECG showed sinus rhythm, left bundle branch block that has been noted to be prior to admission. Chest x-ray, normal heart size, clear lung leos. Sodium 135, creatinine 0.8. Troponin which was 0.34 last week was now 0.14. Cholesterol 246, triglyceride 130, HDL 34, LDL 186, hemoglobin 16.1. HOSPITAL COURSE: The patient was felt to be having unstable angina. The patient initially had been scheduled to return next week at stenting of the circumflex. However, because of recurrent angina, I recommended repeat cardiac catheterization. The patient was started on therapeutic Lovenox and nitro paste. The following hospital day taken back to the slab tripper and performed angiography from the right radial artery. An arteriogram of the right coronary artery showed the stent in the proximal right carotid to be completely occluded. It was felt to be secondary to the fact he was not taking the Brilinta. I performed angioplasty with reperfusion of the right coronary and placed 2 drug-eluting stents in the right coronary artery. There was a good result. An arteriogram was not performed on the left coronary artery since no intervention had been performed a week previously. His LVEDP was normal at 16. The patient was transferred back to monitored bed. Later that afternoon, however, he did complain of some chest discomfort. He developed progressive bradycardia and hypotension. I was called to evaluate the patient. On my arrival, the patient complained of being short of breath and some mild chest discomfort. ECG showed a junctional rhythm and he was hypotensive. His respirations appeared agonal and I had the Emergency Room physician come to the bedside and intubate the patient electively. He was then taken to the slab tripper after starting external pacing and the patient received atropine 2 mg with no result. His blood pressure is low and he was started on dopamine infusion. On arrival to the slab tripper, the patient is on a ventilator and a blood gas, so he was acidotic. He was given epinephrine intravenously and sodium bicarbonate. An arterial sheath was placed in the right femoral artery and his blood pressure is minimal at 50. He was started on Luis Enrique-Synephrine. I then placed a sheath in the right femoral vein and placed a temporary pacing lead in the right ventricular apex, began to pace [address] [address] DISCHARGE SUMMARY Name: ALEXUS CONTE Room: [address] IN .R.#: [id number] Admission: 11/05/17 Attend Phys: Donavan Baker MD Discharge: 11/06/17 Date of : 45 Report #: [id number] the patient at 100 beats per minute. However, despite ventricular pacing, blood pressure is minimal. The patient was given maximal doses of dopamine and Luis Enrique-Synephrine, but despite pacing, he had no blood pressure. At this point, it was felt that the patient had electrical mechanical dissociation. He is felt to have suffered a myocardial infarction and was in cardiogenic shock. Unfortunately, the patient had no blood pressure despite pressors and adequate ventilation while on the ventilator. The patient was pronounced on the slab tripper table. The results were discussed with the patient's . He had felt to have occluded the stent that was put in a week ago after not taking Brilinta. Despite reperfusion right coronary, the patient developed progressive cardiogenic shock and . <ELECTRONICALLY SIGNED> By: Giorgio Lundberg MD, [facility] 11/07/17 1612 1929 03Giorgio Lundberg MD, FACC /nt
--- NOTE | 2017-11-16 19:09 | D ---
[address] [address] DISCHARGE SUMMARY Name: ALEXUS CONTE Room: [address] IN M.R.#: [id number] Admission: 11/05/17 Attend Phys: Donavan Baker MD Discharge: 11/06/17 Date of : 45 Report #: [id number] THIS REPORT FOR: //name// CC: Donavan Bkaer [facility] DATE OF SERVICE: 11/06/2017 ADDENDUM DISCHARGE DIAGNOSIS: Remains the same as previously dictated discharge summary from stitchdown toe former. Please see the description of events leading up to on the summary dictated on 11/06/2017, by Cardiology, diagnosis acute myocardial infarction and coronary artery disease. <ELECTRONICALLY SIGNED> By: Donavan Baker MD 11/16/17 1909 1738 [id number] Baker MD /[facility]
== END 2017-11-06 19:03 | DRG 246 ==
LOC: M.ERS 09:45 → M.TBA-ER 12:10 → M.2W 12:10
PROVIDERS: Family Medicine; ADMIT Internal Medicine
PROC: 4A023N7 Measurement of Cardiac Sampling and Pressure, Left Heart, Percutaneous Approach (ICD-10-PCS; principal; 2017-11-06)
PROC: 5A1935Z Respiratory Ventilation, Less than 24 Consecutive Hours (ICD-10-PCS; principal; 2017-11-06)
PROC: 5A1223Z Performance of Cardiac Pacing, Continuous (ICD-10-PCS; principal; 2017-11-06)
PROC: 027035Z Dilation of Coronary Artery, One Artery with Two Drug-eluting Intraluminal Devices, Percutaneous Approach (ICD-10-PCS; principal; 2017-11-06)
PROC: 0BH17EZ Insertion of Endotracheal Airway into Trachea, Via Natural or Artificial Opening (ICD-10-PCS; principal; 2017-11-06)
DX: T82.867A Thrombosis due to cardiac prosthetic devices, implants and grafts, initial encounter (principal); I21.4 Non-ST elevation (NSTEMI) myocardial infarction; I50.33 Acute on chronic diastolic (congestive) heart failure; I25.110 Atherosclerotic heart disease of native coronary artery with unstable angina pectoris; E11.65 Type 2 diabetes mellitus with hyperglycemia; G20 Parkinson's disease; E78.5 Hyperlipidemia, unspecified; I95.9 Hypotension, unspecified; R57.0 Cardiogenic shock; Y84.0 Cardiac catheterization as the cause of abnormal reaction of the patient, or of later complication, without mention of misadventure at the time of the procedure; I25.2 Old myocardial infarction; Z95.5 Presence of coronary angioplasty implant and graft; Z90.49 Acquired absence of other specified parts of digestive tract; Z85.820 Personal history of malignant melanoma of skin; Z79.899 Other long term (current) drug therapy; Z79.4 Long term (current) use of insulin; Z88.6 Allergy status to analgesic agent; Z88.8 Allergy status to other drugs, medicaments and biological substances; Z87.891 Personal history of nicotine dependence; Y92.89 Other specified places as the place of occurrence of the external cause